=== PATIENT | male | born 1940 | race Caucasian/White ===

== ENCOUNTER 2018-02-12 14:52 | Outpatient (CLI) | payer MEDICARE, OTHER, SELFPAY ==
--- NOTE | 2018-02-12 14:04 | DI.RAD_ITS ---
SYMPTOM/DIAGNOSIS: WHEEZING, R06.2, ? PNEUMONIA, COUGH, R05, R09.89, SYMPTOMS AND SIGNS OF RESP SYSTEMS PA AND LATERAL CHEST: Comparison is made with 11/05/09. Heart size and pulmonary vasculature are within normal limits. The lungs are clear. No effusions or pneumothoraces are identified. The lungs do appear to be hyperinflated suggesting underlying COPD. Degenerative changes are present in the spine. IMPRESSION: No acute pulmonary process.
== END 2018-02-12 15:12 ==
PROVIDERS: PCP Internal Medicine; Visit Provider Nurse Practitioner Adult Health
DX: R06.2 Wheezing (principal); R05 Cough; R09.89 Other specified symptoms and signs involving the circulatory and respiratory systems; J44.9 Chronic obstructive pulmonary disease, unspecified
CPT/HCPCS: 71046

== ENCOUNTER 2020-09-11 02:53 | Outpatient (CLI) | payer MEDICARE, OTHER, SELFPAY ==
[2020-09-11 15:51] LABS: TSH (W/Ref FT4) 1.97 uIU/mL (0.36-3.74)
[2020-09-11 15:52] LABS: Anion Gap 5.6 mmol/L (3-11); BUN 18 mg/dL (7-18); CO2 31.4 mmol/L (21.0-32.0); Calcium 9.2 mg/dL (8.5-10.1); Calculated LDL 83 mg/dL (<100); Chloride 107 mmol/L (98-107); Cholesterol 149 mg/dL (<200); Glucose 94 mg/dL (74-106); HDL Cholesterol 52 mg/dL (40-60); Potassium 4.5 mmol/L (3.5-5.1); Sodium 144 mmol/L (136-145); TSH 1.88 uIU/mL (0.36-3.74); Triglyceride 72 mg/dL (<150)
== END 2020-09-11 02:54 | disposition home or self-care (01) ==
LOC: LBO 02:53
PROVIDERS: PCP Internal Medicine; Visit Provider Internal Medicine
DX: E78.00 Pure hypercholesterolemia, unspecified (principal); E03.9 Hypothyroidism, unspecified; I10 Essential (primary) hypertension
CPT/HCPCS: 36415; 80048; 80061; 84443

== ENCOUNTER 2020-10-22 02:44 | Outpatient (CLI) | payer MEDICARE, OTHER, SELFPAY ==
[2020-10-22 17:09] LABS: TSH (W/Ref FT4) 0.67 uIU/mL (0.36-3.74)
== END 2020-10-22 02:45 | disposition home or self-care (01) ==
PROVIDERS: PCP Internal Medicine; Visit Provider Internal Medicine
DX: E03.9 Hypothyroidism, unspecified (principal)
CPT/HCPCS: 36415; 84443

== ENCOUNTER 2020-10-28 18:17 | Outpatient (REF) | payer MEDICARE, OTHER, SELFPAY | END 2020-10-28 18:18 | disposition home or self-care (01) | LOC: LBN 18:17 | PROVIDERS: PCP Internal Medicine; Visit Provider Internal Medicine | DX: E03.9 Hypothyroidism, unspecified (principal) | CPT/HCPCS: 84439 ==

== ENCOUNTER 2020-12-15 12:26 | Outpatient (CLI) | payer MEDICARE, OTHER, SELFPAY ==
--- NOTE | 2020-12-15 12:15 | RT.EKG_ITS ---
APPROVED REPORT Exam: Resting ECG Reason for Exam: fatigue Patient Location: O HR:57 bpm ECG Measurements Heart Rate 57 AXIS NM 142 P 55 QRSd 135 QRS 50 QT 457 T 33 QTc 444 Conclusion Sinus bradycardia...rate< 60 Right bundle branch block...QRSd>120, terminal axis(90,270)
== END 2020-12-15 12:27 | disposition home or self-care (01) ==
LOC: DI.KIM 12:28
PROVIDERS: PCP Internal Medicine; Visit Provider Internal Medicine
DX: R53.83 Other fatigue (principal); I45.10 Unspecified right bundle-branch block
CPT/HCPCS: 93010

== ENCOUNTER 2020-12-22 01:52 | Outpatient (CLI) | payer MEDICARE, OTHER, SELFPAY ==
--- NOTE | 2020-12-22 06:45 | DI.US_ITS ---
APPROVED REPORT EXAM: Comprehensive 2D, Doppler, and color-flow Echocardiogram Patient Location: Out-Patient Health Education Teacher: Tami Lamar RDCS (AE) Indications: Dyspnea on exertion, Arteriosclerotic Cardiovascular disease Other Information Study Quality: Fair. Technically limited study due to body habitus. Conclusion Left Ventricle : The left ventricular systolic function is normal. The left ventricular ejection frac tion is within the normal range. There is normal left ventricular wall thickness. There is normal LV segmental wall motion. The left ventricular diastolic function is normal. LVEF is 58%. Right Ventricle : The right ventricle is normal size. The right ventricular systolic function is norm al. Atria : The left atrium size is normal. The right atrium size is normal. Mitral Valve : Mild mitral annular calcification. Mild mitral regurgitation. No evidence of mitral va lve stenosis. 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 The aortic root is normal in size. I VC is normal in size and collapses >50% with inspiration. See remainder of study for further details. Wall motion Left Ventricle The left ventricle is normal size. The left ventricular systolic function is normal. The left ventric ular ejection fraction is within the normal range. There is normal left ventricular wall thickness. T here is normal LV segmental wall motion. The left ventricular diastolic function is normal. There is no ventricular septal defect visualized. LVEF is 58%. Right Ventricle The right ventricle is normal size. The right ventricular systolic function is normal. Atria The left atrium size is normal. The right atrium size is normal. The interatrial septum is intact wit h no evidence for an atrial septal defect. Aortic Valve The Aortic valve is sclerotic. Number of aortic valve leaflets could not be assessed. There is no aor tic valvular stenosis. No aortic regurgitation is present. Mitral Valve Mild mitral annular calcification. No evidence of mitral valve stenosis. Mild mitral regurgitation. Tricuspid Valve The tricuspid valve is normal in structure. There is no tricuspid valve stenosis. Trace tricuspid reg urgitation. Unable to assess PA pressure. Pulmonic Valve Pulmonic valve is not well visualized. There is no pulmonic valvular stenosis. There is no pulmonic v alvular regurgitation. Great Vessels The aortic root is normal in size. The ascending aorta is moderately dilated (4cm). IVC is normal in size and collapses >50% with inspiration. Pericardium There is no pericardial effusion. 2D Dimensions IVSD d PLAX 0.89 cm M: 0.6-1.2 LV Vol A2C d MOD 85.7 mL LVPW d PLAX 0.86 cm M: 0.6 - 1.2 LV Vol A4C d MOD 76.7 mL LVID d PLAX 4.41 cm M: 4.2 - 5.8 LA vol/ BSA A2C s A-L 20.0 mL/m2 LVDs 3.10 cm M: 2.5 - 4.0 LA vol/ BSA A4C s A-L 24.2 mL/m2 Ao Root d 3.55 cm M: 3.1 - 3.7 LA Vol/ BSA Biplane s A-L 22.5 mL/m2 RA Area A4C 12.19 cm2 LA Area A4C s MOD 17.01 cm2 RA Vol/ BSA A4C s A-L 15.5 mL/m2 LA Area A2C s MOD 15.11 cm2 Ao Asc Diam d 3.99 cm M: 2.6 - 3.4 LV EF A4C MOD 58.0 % LV EF Teichholz 56.1 % LV EF A2C MOD 57.8 % LVEF (Mcgee's) 58.99 % M: 52 - 72 LV EF Biplane MOD 59.0 % LV Volume 62.38 mL M: 62 - 150 SV 49.08 mL LV Volume Index 31.19 mL/m2 M: 34 - 74 SV Index 24.52 mL/m2 LV Vol Biplane MOD 83.2 mL FS 29.10 % M-Mode TAPSE 1.64 cm (M/F) >1.7 LV Diastology MV E' medial 0.064 (>0.07 m/s) E/A Ratio 0.8 LV E/e MED 9.50 (<14) MV E Vmax 0.61 (0.4-1.3 m/s) MV E' lateral 0.068 (>0.1 m/s) MV A Vmax 0.80 (0.4-1.3 m/s) LV E/e LAT 8.80 (<14) MV E/A Ratio 0.74 MV E/E' medial 9.52 MV E/E' lateral 8.84 Aortic Valve LVOT Area 2.99 cm2 AoV Area Vmax 2.27 cm2 LVOT Vmax 1.02 m/s AoV Area/ BSA (Vmax) 1.13 cm2/m2 LVOT Mean Renny. 0.66 m/s CHERYL Mean Renny. 2.14 cm2 LVOT Peak Grad 4.1 mmHg CHERYL Mean Renny. Index 1.07 cm2/m2 LVOT Mean Grad 2.0 mmHg LVOT VTI 0.195 m LVOT Diam s 1.90 cm AoV Vmax 1.33 m/s Velocity Ratio 0.76 AoV Mean Renny. 0.92 m/s AoV Peak Grad 7.1 mmHg LVOT SV 58.16 mL AoV Mean Grad 3.8 mmHg AoV VTI 0.216 m AoV Area VTI 2.69 cm2 AoV Area/ BSA (VTI) 1.34 cm/m2 Mitral Valve MV DT 330 (160-240 msec) MV PHT 96 msec MV Area PHT 2.30 cm2 MV VTI 0.230 m MV Area VTI 2.53 (4.0-6.0 cm2) Pulmonary Valve PV Vmax 0.87 (0.5-1.5 m/s) RVOT Peak Gr. 1.90 mmHg PV Peak Grad 3.1 mmHg RVOT Mean Gr. 0.95 mmHg PV Mean Grad 1.9 mmHg RVOT VTI 0.129 m PV VTI 0.139 m RVOT Vmax 0.69 m/s
--- NOTE | 2020-12-22 08:30 | ETT_ITS ---
APPROVED REPORT Exam: Exercise Treadmill Patient Location: Out-Patient Room/Bed: Ordering Provider:CLAUDETTE OCHOA, Contact Number: [phone] BMI: 25.39 Baseline Rhythm: Sinus Rhythm w/ RBBB Indications: Dyspnea on exertion, h/o arterosclerotic cardiovascular disease Medical History Medical History: GERD, ASCVD, upper airway resistance syndrome, obstructive lung disease, HLD, depres alexandra, NSTEMI Cardiac Medications: Atorvastatin, ASA Allergies: Vaughan, sulfa, sulfamethoxazole Cardiac Risk Factors: CVD, smoker (former), HLD, family hx Previous Cardiac Procedures: Stent (2017) Pretest Chest Pain Characteristics: None Exercise History: Sedentary Physical Disabilities: None Lung Sounds: Clear to auscultation Heart Sounds: Regular Stress Test Details Test: Exercise stress testing was performed using a Braden protocol. Rest Stress HR Resting HR Supine: 70 bpm Max Heart Rate (APMHR): 142 bpm Resting HR Standin bpm Target HR (85% APMHR): 120 bpm Max HR Achieved: 122 bpm % of APMHR: 85 Recovery HR: 85 bpm HR response to stress: Normal HR response to stress Comment: (Metoprolol d/c 1 wk ago) BP Resting BP Supine: 132/78 mmHg Resting BP Standin/80 mmHg Max BP: 178/88 mmHg Recovery BP: 138/84 mmHg BP response to stress: Normal blood pressure response to stress. ECG Resting ECG: Sinus Rhythm, RBBB Ectopy: None Stress ECG: Sinus Tachycardia, RBBB ST Change: No significant ST segment changes noted Arrhythmia: Occasional multifocal PVCs Recovery ECG: Sinus Rhythm, RBBB Recovery ST Change: No significant ST segment changes noted Recovery Arrhythmia: Frequent multifocal PVCs Clinical Reason for Termination: Fatigue Stress Symptoms: General Fatigue, Dyspnea Exercise duration: 5 min08 sec Highest Stage Reached: Stage 2: 2.5 mph at 12% grade. Exercise capacity: 7.05 METs Estrada Treadmill Score: 5 Rate Pressure Product: [id number] Stress ECG Conclusion 1. The patient exercised for 5 minutes (7 METS). Exercise was stopped due to fatigue. 2. The patient's blood pressure and heart rate augmented appropriately. 3. The patient no symptoms suggestive of ischemia. 4. There is no evidence of ischemia on the ECG portion of the exam. Estrada Treadmill Score is 5 which is Low risk. Stress Test Summary STAGE Time (mins) Speed (mph) Grade (%) HR BP SYMPTOMS METS Supine 70 132/78 Standing 63 124/80 SpO2 95% 1 3 1.7 10 110 140/76 SpO2 94% 4.6 2 6 2.5 12 122 SpO2 94%, mild SOB 7 1 min recovery 104 170/70 SpO2 94%, mild dizziness 3 min recovery 86 178/88 symptoms resolved 6 min recovery 85 138/84
== END 2020-12-22 02:12 ==
PROVIDERS: PCP Internal Medicine; Visit Provider Internal Medicine
DX: R06.09 Other forms of dyspnea (principal); F32.9 Major depressive disorder, single episode, unspecified; R53.83 Other fatigue; Z86.79 Personal history of other diseases of the circulatory system; R06.02 Shortness of breath; I77.810 Thoracic aortic ectasia
CPT/HCPCS: 93016; 93018; 93306; 93017

== ENCOUNTER 2021-01-20 15:49 | Outpatient (CLI) | payer MEDICARE, OTHER, SELFPAY ==
--- NOTE | 2021-01-20 15:00 | DI.RAD_ITS ---
Exam(s) XR CHEST 2V PA LATERAL EXAM: XR CHEST 2V PA LATERAL CLINICAL HISTORY: abnormal lung exam, obstructive lung disease, J44.9. TECHNIQUE: 2D digital imaging was performed. COMPARISON: CR XR CHEST 2V PA LATERAL from 02/12/2018 FINDINGS: Heart size is normal. The mediastinum is not widened. Lungs are clear. No infiltrates nor pleural effusions. No pulmonary edema. Healed left-sided rib fracture noted. No pneumothorax. IMPRESSION: No acute pulmonary findings. DATA REPOSITORY: RADIATION DOSE DELIVERED:
== END 2021-01-20 16:09 ==
PROVIDERS: PCP Internal Medicine; Visit Provider Internal Medicine
DX: J44.9 Chronic obstructive pulmonary disease, unspecified (principal)
CPT/HCPCS: 71046

== ENCOUNTER 2021-01-22 02:00 | Outpatient (CLI) | payer MEDICARE, OTHER, SELFPAY ==
[2021-01-22 12:59] LABS: Source Nasal/Nares
[2021-01-22 16:58] LABS: COVID-19 PCR Negative (Negative)
== END 2021-01-22 02:01 | disposition home or self-care (01) ==
LOC: LBO 02:01
PROVIDERS: PCP Internal Medicine; Visit Provider Neurological Surgery
DX: Z01.812 Encounter for preprocedural laboratory examination (principal); Z20.822 Contact with and (suspected) exposure to COVID-19
CPT/HCPCS: 87635

== ENCOUNTER 2021-01-25 11:54 | Day surgery (SDC) | payer MEDICARE, OTHER, SELFPAY ==
[2021-01-25 12:13] VITALS: BP 121/76; PULSE 65; RESP 16; TEMP 36.2; O2SAT 97
--- NOTE | 2021-01-25 12:13 | W.ANESPRE ---
General Info Height: 5 ft 9 in Weight: 78.925 kg Body Mass Index (BMI): 25.7 Surgical Procedure: Operation Date: 01/25/21 15:40 Proposed Procedures Side Surgeon p Cataract Extraction with IOL Implant Left Cullen Pacheco MD Meds Allergies and Home Medications Allergies Allergy/AdvReac Type Severity Reaction Status Date / Time strawberry Allergy Intermediate hives Verified 01/25/21 12:08 Sulfa (Sulfonamide Allergy Unknown Hives Verified 01/25/21 12:08 Antibiotics) sulfamethoxazole Allergy Unknown Hives Verified 01/25/21 12:08 Home Medication Medication Instructions Recorded diphenhydramine HCl [Benadryl 25 mg PO PRN 10/05/12 Allergy] aspirin 81 mg PO DAILY tab 07/06/16 levothyroxine 125 mcg tablet 125 mcg PO DAILY #90 tab-cap 08/03/20 atorvastatin 80 mg tablet 80 mg PO DAILY #90 tab-cap 08/17/20 inhalational spacing device #1 ea 09/23/20 albuterol sulfate 90 mcg/actuation 1 puff INHALATION QID PRN #1 inh 01/20/21 aerosol inhaler metoprolol succinate 50 mg 25 mg PO DAILY #90 tab 01/20/21 tablet,extended release 24 hr pantoprazole 20 mg tablet,delayed 20 mg PO DAILY #90 tab 01/20/21 release Current Visit Medications: Current Medications Generic Name Dose Route Start Last Admin Trade Name Freq PRN Reason Stop Dose Admin Acetaminophen 1,000 mg 01/25/21 06:00 Acetaminophen 500 Mg Tab PO Q4H PRN PRN Miscellaneous Medication 0 ml 01/25/21 06:00 Prednisolone 1%, Moxifloxacin 0.5%, Nepafenac 0.1% 5ml Btl OS DIRECTED [facility] Miscellaneous Medication 0 ml 01/25/21 06:00 Tropicam./Phenyleph. (1/2.5%) 5 Ml Btl OS DIRECTED [facility] Tetracaine HCl 0 ml 01/25/21 06:00 Tetracaine 0.5% 4 Ml Btl OS DIRECTED [facility] PFSH Active Problems Active Problems: Problem Status Onset Code Diverticulosis of colon without diverticulitis 06/05/13 K57.30 Dysosmia 12/01/14 R43.9 Esophageal reflux 12/09/13 K21.9 Hypothyroidism 10/24/12 E03.9 Insomnia 12/01/14 G47.00 Nocturnal hypoxemia 04/01/15 G47.34 Obstructive lung disease 07/30/14 J44.9 Other and unspecified hyperlipidemia 08/01/11 E78.5 Snoring 12/01/14 R06.83 Upper airway resistance syndrome G47.8 BPH w/o urinary obs/LUTS 12/09/13 N40.0 Vitamin D deficiency 12/09/13 E55.9 Glaucoma 12/09/13 H40.9 Elevated fasting blood sugar R73.01 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 Fatigue R53.83 Diplopia H53.2 Unspecified visual field defects H53.40 Weight loss, non-intentional R63.4 Medical History Medical History (Updated 01/25/21 @ 12:08 by Elliott Macdonald) Acute coronary syndrome (06/20/16) [facility] troponin+, sent to [facility] [place] Basal cell carcinoma of skin (05/29/99) BPH (benign prostatic hyperplasia) Cataract, left eye Depressive disorder, not elsewhere classified (08/01/11) GERD (gastroesophageal reflux disease) Non-ST elevation (NSTEMI) myocardial infarction (06/21/16) Polymyalgia rheumatica (05/29/01) Steroids x 18 mo, no recurrence 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 Coronary Stent (06/22/16) [facility] [place]. Dr. Braden BelloCardiac Cath left- Stent of RCA lesion, 2 vessel CAD-LAD and RCA, coronary angiography, angioplasty LAD lesion Rotator Cuff Repair (04/08/15) left Tobacco Smoking/Tobacco Use Status: Former Tobacco Use Alcohol Alcohol Intake: current Alcohol intake frequency: a few times a month Alcohol type: beer and wine Substance Use Substance use: Never Substance use type: does not use Vital Signs and Lab Results Vital Signs Most Recent Vital Signs in EMR: Temp Pulse Resp BP Pulse Ox 36.2 C L 65 16 121/76 97 01/25/21 12:13 01/25/21 12:13 01/25/21 12:13 01/25/21 12:13 01/25/21 12:13 Lab Results Blood Type / Crossmatch: No Data to Display Complete Blood Count: No Data to Display Complete Metabolic Panel: No Data to Display Liver Function Panel: No Data to Display Coagulation Panel: No Data to Display Cardiac Panel: No Data to Display Arterial Blood Gas: No Data to Display Venous Blood Gas: No Data to Display Pancreas Panel: No Data to Display Thyroid Panel: No Data to Display Infectious Disease: Coronavirus (COVID-19)(PCR) Negative (Negative) 01/22/21 10:40 01/22/21 Coronavirus 2019 Source Nasal/Nares 01/22/21 10:40 01/22/21 Blood Cultures: No Data to Display Toxicology Panel: No Data to Display Imaging and Studies Imaging and Studies EKG Summary: Conclusion Sinus bradycardia...rate< 60 Right bundle branch block...QRSd>120, terminal axis(90,270) 12/15/20 Echocardiogram Summary: Conclusion Left Ventricle : The left ventricular systolic function is normal. The left ventricular ejection fraction is within the normal range. There is normal left ventricular wall thickness. There is normal LV segmental wall motion. The left ventricular diastolic function is normal. LVEF is 58%. Right Ventricle : The right ventricle is normal size. The right ventricular systolic function is normal. Atria : The left atrium size is normal. The right atrium size is normal. Mitral Valve : Mild mitral annular calcification. Mild mitral regurgitation. No evidence of mitral valve stenosis. 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 The aortic root is normal in size. IVC is normal in size and collapses >50% with inspiration. See remainder of study for further details. Wall motion Left Ventricle The left ventricle is normal size. The left ventricular systolic function is normal. The left ventricular ejection fraction is within the normal range. There is normal left ventricular wall thickness. There is normal LV segmental wall motion. The left ventricular diastolic function is normal. There is no ventricular septal defect visualized. LVEF is 58%. Right Ventricle The right ventricle is normal size. The right ventricular systolic function is normal. Atria The left atrium size is normal. The right atrium size is normal. The interatrial septum is intact with no evidence for an atrial septal defect. Aortic Valve The Aortic valve is sclerotic. Number of aortic valve leaflets could not be assessed. There is no aortic valvular stenosis. No aortic regurgitation is present. Mitral Valve Mild mitral annular calcification. No evidence of mitral valve stenosis. Mild mitral regurgitation. Tricuspid Valve The tricuspid valve is normal in structure. There is no tricuspid valve stenosis. Trace tricuspid regurgitation. Unable to assess PA pressure. Pulmonic Valve Pulmonic valve is not well visualized. There is no pulmonic valvular stenosis. There is no pulmonic valvular regurgitation. Great Vessels The aortic root is normal in size. The ascending aorta is moderately dilated (4cm). IVC is normal in size and collapses >50% with inspiration. Pericardium There is no pericardial effusion. 12/22/20 Anesthesia Assessment and Plan Anesthesia History Personal History: No History of Anesthesia Complications Family History: No Family History of Anesthesia Complications Exercise Tolerance Exercise Tolerance: Metabolic Equivalents<4 Cardiac & Pulmonary Exam Cardiac Exam: Normal S1/S2 Heart Sounds Pulmonary Exam: Clear Bilateral Breath Sounds Cardiac and Pulmonary Comment:: NSTEMI 2017 Coronary Stent (06/22/16) [facility] [place] RCA lesion, 2 vessel CAD-LAD and RCA, coronary angiography, angioplasty LAD lesion Airway Exam Known Difficult Airway: No Mouth Opening: Normal (> 3cm) Thyromental Distance: Greater than 3 cm Neck Range of Motion: Full ROM Neck Circumference: Normal ASA Classification ASA Score: ASA 3 Emergency Case?: No NPO Status NPO Status: NPO Clears >2 hours, Solids >8 hours Anesthesia Plan Resuscitation Status: Full Code Anesthesia Technique: MAC Anesthesia Airway Planned: Natural Airway Monitors Used: Standard Monitors
[2021-01-25] MEDS: Tropicam./Phenyleph. (1/2.5%) 5 ML BTL OS ×3 (12:33→12:46)
--- NOTE | 2021-01-25 12:34 | ANES.PREOP_ITS ---
General Info Date of Service Date Performed: 01/25/21 Height: 5 ft 9 in Weight: 78.5 kg Body Mass Index (BMI): 25.5 Surgical Procedure: Operation Date: 01/25/21 15:40 Proposed Procedures Side Surgeon p Cataract Extraction with IOL Implant Left Cullen Pacheco MD Meds Allergies and Home Medications Allergies Allergy/AdvReac Type Severity Reaction Status Date / Time strawberry Allergy Intermediate hives Verified 01/25/21 12:08 Sulfa (Sulfonamide Allergy Unknown Hives Verified 01/25/21 12:08 Antibiotics) sulfamethoxazole Allergy Unknown Hives Verified 01/25/21 12:08 Home Medication Medication Instructions Recorded diphenhydramine HCl [Benadryl 25 mg PO PRN 10/05/12 Allergy] aspirin 81 mg PO DAILY tab 07/06/16 levothyroxine 125 mcg tablet 125 mcg PO DAILY #90 tab-cap 08/03/20 atorvastatin 80 mg tablet 80 mg PO DAILY #90 tab-cap 08/17/20 inhalational spacing device #1 ea 09/23/20 albuterol sulfate 90 mcg/actuation 1 puff INHALATION QID PRN #1 inh 01/20/21 aerosol inhaler metoprolol succinate 50 mg 25 mg PO DAILY #90 tab 01/20/21 tablet,extended release 24 hr pantoprazole 20 mg tablet,delayed 20 mg PO DAILY #90 tab 01/20/21 release Current Visit Medications: Current Medications Generic Name Dose Route Start Last Admin Trade Name Freq PRN Reason Stop Dose Admin Acetaminophen 1,000 mg 01/25/21 06:00 Acetaminophen 500 Mg Tab PO Q4H PRN PRN Miscellaneous Medication 0 ml 01/25/21 06:00 Prednisolone 1%, Moxifloxacin 0.5%, Nepafenac 0.1% 5ml Btl OS DIRECTED BELEN Miscellaneous Medication 0 ml 01/25/21 06:00 01/25/21 12:33 Tropicam./Phenyleph. (1/2.5%) 5 Ml Btl OS 1 drp DIRECTED BELEN Administration Tetracaine HCl 0 ml 01/25/21 06:00 Tetracaine 0.5% 4 Ml Btl OS DIRECTED BELEN PFSH Active Problems Active Problems: Problem Status Onset Code Diverticulosis of colon without diverticulitis 06/05/13 K57.30 Dysosmia 12/01/14 R43.9 Esophageal reflux 12/09/13 K21.9 Hypothyroidism 10/24/12 E03.9 Insomnia 12/01/14 G47.00 Nocturnal hypoxemia 04/01/15 G47.34 Obstructive lung disease 07/30/14 J44.9 Other and unspecified hyperlipidemia 08/01/11 E78.5 Snoring 12/01/14 R06.83 Upper airway resistance syndrome G47.8 BPH w/o urinary obs/LUTS 12/09/13 N40.0 Vitamin D deficiency 12/09/13 E55.9 Glaucoma 12/09/13 H40.9 Elevated fasting blood sugar R73.01 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 Fatigue R53.83 Diplopia H53.2 Unspecified visual field defects H53.40 Weight loss, non-intentional R63.4 Medical History Medical History (Updated 01/25/21 @ 12:08 by Elliott Macdonald) Acute coronary syndrome (06/20/16) [facility] troponin[place] [facility] Basal cell carcinoma of skin (05/29/99) BPH (benign prostatic hyperplasia) Cataract, left eye Depressive disorder, not elsewhere classified (08/01/11) GERD (gastroesophageal reflux disease) Non-ST elevation (NSTEMI) myocardial infarction (06/21/16) Polymyalgia rheumatica (05/29/01) Steroids x 18 mo, no recurrence 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 Coronary Stent (06/22/16[place] [facility]. Braden BelloCardiac Cath left- Stent of RCA lesion, 2 vessel CAD- LAD and RCA, coronary angiography, angioplasty LAD lesion Rotator Cuff Repair (04/08/15) left Tobacco Smoking/Tobacco Use Status: Former Tobacco Use Alcohol Alcohol Intake: current Alcohol intake frequency: a few times a month Alcohol type: beer and wine Substance Use Substance use: Never Substance use type: does not use Vital Signs and Lab Results Vital Signs Most Recent Vital Signs in EMR: Most Recent Vital Signs Temp Pulse Resp BP Pulse Ox 36.2 C L 65 16 121/76 97 01/25/21 12:13 01/25/21 12:13 01/25/21 12:13 01/25/21 12:13 01/25/21 12:13 Lab Results Blood Type / Crossmatch: No Data to Display Complete Blood Count: No Data to Display Complete Metabolic Panel: No Data to Display Liver Function Panel: No Data to Display Coagulation Panel: No Data to Display Cardiac Panel: No Data to Display Arterial Blood Gas: No Data to Display Venous Blood Gas: No Data to Display Pancreas Panel: No Data to Display Thyroid Panel: No Data to Display Infectious Disease: Coronavirus (COVID-19)(PCR) Negative (Negative) 01/22/21 10:40 01/22/21 Coronavirus 2019 Source Nasal/Nares 01/22/21 10:40 01/22/21 Blood Cultures: No Data to Display Toxicology Panel: No Data to Display Imaging and Studies Imaging and Studies EKG Summary: Conclusion Sinus bradycardia...rate< 60 Right bundle branch block...QRSd>120, terminal axis(90,270) 12/15/20 Echocardiogram Summary: Conclusion Left Ventricle : The left ventricular systolic function is normal. The left ventricular ejection fraction is within the normal range. There is normal left ventricular wall thickness. There is normal LV segmental wall motion. The left ventricular diastolic function is normal. LVEF is 58%. Right Ventricle : The right ventricle is normal size. The right ventricular systolic function is normal. Atria : The left atrium size is normal. The right atrium size is normal. Mitral Valve : Mild mitral annular calcification. Mild mitral regurgitation. No evidence of mitral valve stenosis. 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 The aortic root is normal in size. IVC is normal in size and collapses >50% with inspiration. See remainder of study for further details. Wall motion Left Ventricle The left ventricle is normal size. The left ventricular systolic function is no rmal. The left ventricular ejection fraction is within the normal range. There is normal left ventricular wall thickness. There is normal LV segmental wall motion. The left ventricular diastolic function is normal. There is no ventricular septal defect visualized. LVEF is 58%. Right Ventricle The right ventricle is normal size. The right ventricular systolic function is normal. Atria The left atrium size is normal. The right atrium size is normal. The interatrial septum is intact with no evidence for an atrial septal defect. Aortic Valve The Aortic valve is sclerotic. Number of aortic valve leaflets could not be assessed. There is no aortic valvular stenosis. No aortic regurgitation is present. Mitral Valve Mild mitral annular calcification. No evidence of mitral valve stenosis. Mild mitral regurgitation. Tricuspid Valve The tricuspid valve is normal in structure. There is no tricuspid valve stenosis. Trace tricuspid regurgitation. Unable to assess PA pressure. Pulmonic Valve Pulmonic valve is not well visualized. There is no pulmonic valvular stenosis. There is no pulmonic valvular regurgitation. Great Vessels The aortic root is normal in size. The ascending aorta is moderately dilated (4cm). IVC is normal in size and collapses >50% with inspiration. Pericardium There is no pericardial effusion. 12/22/20 Anesthesia Assessment and Plan Anesthesia History Personal History: No History of Anesthesia Complications Family History: No Family History of Anesthesia Complications Exercise Tolerance Exercise Tolerance: Metabolic Equivalents>4 Pertinent Negatives Pertinent Negatives: No Major Cardiovascular Symptoms or Complaints Cardiac & Pulmonary Exam Cardiac Exam: Normal S1/S2 Heart Sounds Pulmonary Exam: Clear Bilateral Breath Sounds Cardiac and Pulmonary Comment:: NSTEMI 2017 with stenting, no cardiac symptoms since Airway Exam Known Difficult Airway: No Mallampati Class: 1 Mouth Opening: Normal (> 3cm) Thyromental Distance: Greater than 3 cm Facial Hair: Full [place] Neck Range of Motion: Full ROM Neck Circumference: Normal Teeth Condition: Normal Dentition ASA Classification ASA Score: ASA 2 Emergency Case?: No NPO Status NPO Status: NPO Clears >2 hours, Solids >8 hours Anesthesia Plan Resuscitation Status: Full Code Anesthesia Technique: MAC Anesthesia Airway Planned: Natural Airway Monitors Used: Standard Monitors
[2021-01-25 12:40] VITALS: BMI 25.5
[2021-01-25] MEDS: Tetracaine 0.5% 4 ML BTL OS (13:24)
[2021-01-25] MEDS: Duovisc Viscoelastic System EACH 1 EACH (13:25)
[2021-01-25] MEDS: Balanced Salt Soln.-PLUS 500 ML BAG (13:25)
[2021-01-25] MEDS: Lidocaine 1% Pres-Free 5 ML VIAL (13:26)
[2021-01-25] MEDS: Lidocaine 2% Jelly 6 ML SYR (13:26)
[2021-01-25] MEDS: Povidone-Iodine Ophth 30 ML BTL (13:28)
--- NOTE | 2021-01-25 13:53 | W.PM.DSUDISC ---
Discharge Plan Disposition Patient Disposition: HOME Condition: Good Discharge Details Attending Provider: Cullen Pacheco Primary Care Provider: Marilu Montgomery Home Meds and New Rx's Prescriptions: No Action (DME) BreatheRite MDI Spacer Spacer See Rx Instructions .ROUTE .MEDSUPPLY Qty: 1 RF: 0 metoprolol succinate 50 mg tablet extended release 24 hr 25 mg PO DAILY Qty: 90 RF: 3 pantoprazole [Protonix] 20 mg tablet,delayed release (DR/EC) 20 mg PO DAILY Qty: 90 RF: 0 albuterol sulfate 90 mcg/actuation HFA aerosol inhaler 1 puff inhalation QID PRN (Reason: shortness of breath or wheezing) Qty: 1 RF: 2 diphenhydramine HCl [Benadryl Allergy] 25 MG tablet 25 mg PO PRN RF: 0 aspirin 81 MG tablet,delayed release (DR/EC) 81 mg PO DAILY RF: 0 levothyroxine 125 mcg tablet 125 mcg PO DAILY Qty: 90 RF: 3 atorvastatin 80 mg tablet 80 mg PO DAILY Qty: 90 RF: 3 Discharge Instructions Stand Alone Forms: Post-op Topical Cataract, Cally Larson (DSU) Discharge Orders Discharge Orders: Discharge Order (Routine); Ordered 01/25/21 Ordered By: Cullen Pacheco DS: Diagnosis Discharge Diagnosis (1) Cortical cataract of left eye: Status: Resolved (2) Nuclear sclerotic cataract of left eye: Status: Resolved
[2021-01-25 13:54] VITALS: BP 132/70; PULSE 64; RESP 16; TEMP 36.1; O2SAT 100
--- NOTE | 2021-01-25 13:56 | W.PM.OP ---
Date of service: 01/25/21 Time of Service: 13:56 Operative Note Operative Note DATE OF PROCEDURE: 01/25/21 PRE-OP DIAGNOSIS: Nuclear/cortical cataract, left eye POST-OP DIAGNOSIS: same PROCEDURE: Cataract extraction using phacoemulsification with intraocular lens implant, left eye SURGEON: Cullen Pacheco ANESTHESIA TYPE: Local By Surgeon and MAC Refer to Anesthesia Record PATHOLOGY: none sent COMPLICATIONS: None Patient was transported to: same day Patient's condition: stable Implants: [employer] / [employer] Tecnis [id number] Indications: Progressive decreased vision due to cataract, left eye, with poor red reflex Procedure Description: CATARACT SURGERY OPERATIVE REPORT PREOPERATIVE DIAGNOSIS: 1. Nuclear/cortical cataract, left eye POSTOPERATIVE DIAGNOSIS: Same OPERATION: 1. Cataract extraction using phacoemulsification with posterior chamber intraocular lens implant, left eye. IOL: IOL General Hardware Salesperson/Model: [employer] / RASHID Tecnis [id number] IOL Power: + 20.50 diopters IOL Serial Number: [id number] Optic Diameter: 6.0 mm Haptic/Overall Diameter: 13.0 mm PHACO INFO: [employer] K.K.urion Vision System with OZil and [employer]uid[employer] Cumulative Dispersed Energy (CDE): 15.9 seconds SURGEON: Cullen Pacheco MD, [place] ANESTHESIA: Monitored A [facility] (MAC), with local sub-tenon's anesthetic infiltration COMPLICATIONS: None SPECIMENS: None INDICATIONS FOR PROCEDURE: The patient is a 80-year-old gentleman with history of myopia, having undergone cataract surgery many years ago in the right eye with a postop refractive target of -5.0 diopters. He has now developed asymptomatic nuclear/cortical cataract in the left eye and desires cataract surgery there and attempt to improve and maximize his vision. Postoperative refractive target is -5.0 diopters. PROCEDURE: The correct surgical eye was identified and marked as the left eye and the pupil was dilated in the preoperative area using mydriatics and cycloplegics. The dilated pupil size was 7.5 mm. He elected to proceed without oral sedation.. The patient was brought to the operating room where cardiopulmonary monitoring was instituted and surgical time-out was performed, confirming the correct operative eye and IOL power. Topical anesthesia was administered and ophthalmic povidone-iodine 5% was instilled into the conjunctival fornices. Lidocaine gel was applied to the cornea and the jake-ocular area was prepped with Betadine 10% solution and draped in the usual sterile fashion for intraocular surgery, including an aperture drape. A Tegaderm transparent film dressing was cut in half and used to cover the lashes and lid margins. Care was taken to sequester the lashes and lid margins under the Tegaderm dressing. A lid speculum was placed between the lids of the operative eye and the Alberto-Niraj operating microscope was maneuvered into position. Kendy scissors were then used to make a conjunctival buttonhole approximately 6mm posterior to the limbus in the inferonasal quadrant. Blunt dissection was carried out to expose bare sclera, and a blunt-tipped sub-tenon?s anesthesia cannula was introduced and passed posteriorly along the globe where non-preserved plain lidocaine was injected into posterior sub-Tenon?s space. A sideport knife was used to make a paracentesis port superiorly/superiortemporally. Intraocular phenylephrine/lidocaine was injected int the anterior chamber.. The anterior chamber was filled with viscoelastic. A 2.4mm keratome knife was used to create a half-thickness groove at the limbus and then to construct a three-plane near-clear corneal tunnel extending 2.0mm into clear cornea at the 3:00 position. A flap was raised on the anterior capsule and capsulorhexis forceps were used to complete a continuous curvilinear capsulorhexis of 5.5 mm. Balanced salt solution was then used to perform cortical cleaving hydrodissection and nuclear hydrodelineation until the lens could be freely rotated within the capsular bag. The lens nucleus was then disassembled and removed within the capsular bag and iris plane using phacoemulsification. Residual cortical material was removed using the 45-degree angled silicone I/A tip with 0.3mm port. The posterior capsule was carefully polished to remove as much residual lens epithelial cells as safely possible. The capsular bag was then inflated and the anterior chamber deepened with viscoelastic. The lens implant described above was inserted into the capsular bag using the RASHID Valmy Injector. A Kuglen hook was used to dial the IOL into position. Residual viscoelastic was then removed first from posterior to the IOL, then from the anterior chamber using the I/A handpiece. The lens implant was noted to center nicely within the capsular bag. The incisions were stromally hydrated, and the anterior chamber was reformed using BSS. Then 0.5cc of moxifloxacin 1.0mg/ml were injected into the capsular bag and anterior chamber. The incisions were checked with a Weck spear and found to be secure. Several drops of ophthalmic povidone-iodine 5% were then applied to the eye followed by two drops of Imprimis combination prednisolone/moxifloxacin/nepafenac solution. The drapes were removed and a clear plastic protective eye shield was placed over the eye. The patient was then returned to Same Day Surgery in stable condition.
--- NOTE | 2021-01-25 14:05 | W.ANESPOSTOP ---
Postoperative Evaluation Date, Time and Location Date Performed: 01/25/21 Time Performed: 14:00 Patient Location: Day Surgery Unit Vital Signs Most Recent Imported Vital Signs: Most Recent Vital Signs Temp Pulse Resp BP Pulse Ox 36.1 C L 64 16 132/70 100 01/25/21 13:54 01/25/21 13:54 01/25/21 13:54 01/25/21 13:54 01/25/21 13:54 Pain Score Most Recent Pain Score: Most Recent Pain Score Pain Level 0 01/25/21 13:54 Assessment Mental Status: Awake (Alert & Oriented to Patient Baseline) Airway and Respiratory Function: Patent airway with normal (patient baseline) respiratory exam Cardiovascular Function: Hemodynamically Stable Hydration Status: Adequately Hydrated Nausea & Vomiting: No Nausea or Vomiting Pain: Pt. Denies Any Pain Peripheral Nerve Block: Patient did not receive a nerve block
== END 2021-01-25 14:08 | disposition home or self-care (01) ==
PROVIDERS: PCP Internal Medicine; Visit Provider Ophthalmology
PROC: (CPT 66984; principal; 2021-01-25 15:30)
DX: H25.12 Age-related nuclear cataract, left eye (principal); J44.9 Chronic obstructive pulmonary disease, unspecified
CPT/HCPCS: 66984; V2632

== ENCOUNTER 2021-04-08 02:54 | Outpatient (CLI) | payer MEDICARE, OTHER, SELFPAY ==
[2021-04-08] MEDS: Inhaler, Assist Device 1 EACH MC (11:04)
[2021-04-08] MEDS: Albuterol HFA 18 GM 200 PUFF INH IH (11:04)
--- NOTE | 2021-04-09 16:50 | W.PFT ---
Date of service: 04/09/21 Time of Service: 10:06 Pulmonary Function Test Result Requesting Provider Marilu Montgomery Indications: Dyspnea Interpretation Spirometry: There is no airflow limitation. There is a restrictive pattern to spirometry. There is a significant bronchodilator response. Appearance of flow volume loop and volume-time curve are consistent with an obstructive process. Lung Volumes: Lung volumes are normal with possible mild air trapping. Diffusion Capacity: Diffusion normal. Airway Pressure: Airways resistance is normal. Impression It is likely that the FVC is reduced due to airflow obstruction given the appearance of the flow volume loop and volume-time curve. There is a significant bronchodilator effect and a normal diffusion. This could represent chronic bronchitis (COPD) or asthma in the correct clinical setting. Clinical Correlation therefore is recommended.
== END 2021-04-08 02:55 | disposition home or self-care (01) ==
LOC: RT 02:54
PROVIDERS: PCP Internal Medicine; Visit Provider Internal Medicine
DX: R06.09 Other forms of dyspnea (principal); Z87.891 Personal history of nicotine dependence; J98.4 Other disorders of lung
CPT/HCPCS: 94060; 94726; 94729

== ENCOUNTER 2021-09-21 05:24 | Outpatient (CLI) | payer MEDICARE, OTHER, SELFPAY | END 2021-09-21 05:25 | disposition home or self-care (01) | LOC: LBO 05:25 | PROVIDERS: PCP Internal Medicine; Referring Provider Internal Medicine; Visit Provider Internal Medicine ==

== ENCOUNTER 2021-09-28 02:31 | Outpatient (CLI) | payer MEDICARE, OTHER, SELFPAY ==
[2021-09-28 16:40] LABS: BUN 11 mg/dL (7-18); CREATININE 0.9 mg/dL (0.70-1.30); Calcium 8.8 mg/dL (8.5-10.1); Chloride 104 mmol/L (98-107); Glucose 108 mg/dL (74-106); Sodium 142 mmol/L (136-145)
[2021-09-28 16:54] LABS: Calculated LDL 90 mg/dL (<100); Cholesterol 154 mg/dL (<200); HDL Cholesterol 55 mg/dL (40-60); TSH (W/Ref FT4) 1.76 uIU/mL (0.36-3.74); Triglyceride 49 mg/dL (<150)
== END 2021-09-28 02:32 | disposition home or self-care (01) ==
LOC: LBO 02:32
PROVIDERS: Student in an Organized Health Care Education/Training Program; PCP Internal Medicine; Visit Provider Internal Medicine
DX: E03.9 Hypothyroidism, unspecified (principal); E78.00 Pure hypercholesterolemia, unspecified; R73.01 Impaired fasting glucose; Z86.79 Personal history of other diseases of the circulatory system
CPT/HCPCS: 36415; 80048; 80061; 84443

== ENCOUNTER → 2022-01-17 13:35 | Outpatient (BNVA) | payer MEDICARE, OTHER, SELFPAY | PROVIDERS: PCP Internal Medicine; Referring Provider Internal Medicine; Visit Provider Psychiatry & Neurology Neurology | DX: R29.898 Other symptoms and signs involving the musculoskeletal system (principal); G62.9 Polyneuropathy, unspecified; R73.03 Prediabetes | CPT/HCPCS: 99214 ==

== ENCOUNTER 2022-02-17 15:03 | Outpatient (CLI) | payer MEDICARE, OTHER, SELFPAY ==
[2022-02-17 13:05] LABS: Abs Immature Grans 0.03 10^3/uL (0.0-0.06); Absolute Basophil Count 0.05 10^3/uL (0.0-0.2); Absolute Eosinophil Count 0.22 10^3/uL (0.0-0.7); Absolute Lymphocyte Count 1.67 10^3/uL (1.2-3.4); Absolute Monocyte Count 0.53 10^3/uL (0.1-0.8); Absolute Neutrophil Count 6.45 10^3/uL (1.2-6.7); Basophils % 0.6; Eosinophils % 2.5; HCT 42.8 % (40.0-50.0); HGB 14.3 g/dL (13.5-17.5); Immature Grans % 0.3; Lymphocytes % 18.7; MCHC 33.4 % (32.0-36.0); MCV 90 fL (80-95); MPV 8.8 fL (8.0-11.0); Monocytes % 5.9; Platelet Count 300 10^3/uL (130-400); RBC 4.76 10^6/uL (4.36-5.78); RDW 12.9 % (11.8-14.1); RDW-SD 42.8 fL; WBC 8.95 10^3/uL (4.4-10.8)
[2022-02-17 13:59] LABS: Vitamin B12 292 pg/mL (193-986)
[2022-02-17 14:21] LABS: Hemoglobin A1C 5.4 % (<5.7)
[2022-02-18 12:44] LABS: Albumin 62.2 % (55.8-66.1); Total Protein 6.4 g/dL (6.3-8.2)
== END 2022-02-17 15:04 | disposition home or self-care (01) ==
LOC: LBO 15:08
PROVIDERS: Psychiatry & Neurology Neurology; PCP Family Medicine; Visit Provider Family Medicine
DX: R73.9 Hyperglycemia, unspecified (principal); R26.89 Other abnormalities of gait and mobility; G62.9 Polyneuropathy, unspecified; R06.81 Apnea, not elsewhere classified
CPT/HCPCS: 36415; 82607; 83036; 84165; 85025

== ENCOUNTER → 2022-02-21 15:07 | Outpatient (BNVA) | payer MEDICARE, OTHER, SELFPAY | PROVIDERS: PCP Family Medicine; Referring Provider Family Medicine; Visit Provider Psychiatry & Neurology Neurology | DX: R20.0 Anesthesia of skin (principal); R53.1 Weakness; R06.09 Other forms of dyspnea; J44.9 Chronic obstructive pulmonary disease, unspecified; R26.89 Other abnormalities of gait and mobility; R42 Dizziness and giddiness; R29.898 Other symptoms and signs involving the musculoskeletal system; G62.9 Polyneuropathy, unspecified | CPT/HCPCS: 99215 ==

== ENCOUNTER 2022-04-01 02:56 | Outpatient (CLI) | payer MEDICARE, SELFPAY ==
[2022-04-01] MEDS: Albuterol HFA 18 GM 200 PUFF INH IH (14:15)
[2022-04-01] MEDS: Inhaler, Assist Device 1 EACH MC (14:16)
--- NOTE | 2022-04-04 14:54 | W.PFT ---
Date of service: 04/01/22 Time of Service: 13:16 Pulmonary Function Test Result Requesting Provider Duchene Indications: ACOS Interpretation Spirometry: There is severe airflow limitation. There is not a significant bronchodilator response. The FVC is low. Lung Volumes: There is air trapping Diffusion Capacity: Normal diffusion Airway Pressure: Normal airways resistance. Impression Severe airflow obstruction with air trapping and a normal diffusion. The low FVC is due to severe airflow obstruction. Note: When compared to 04/08/21, the FEV1 and FVC have both decreased. Clinical Correlation therefore is recommended.
== END 2022-04-01 02:57 | disposition home or self-care (01) ==
LOC: RT 02:56
PROVIDERS: PCP Family Medicine; Visit Provider Student in an Organized Health Care Education/Training Program
DX: J44.9 Chronic obstructive pulmonary disease, unspecified (principal); J98.8 Other specified respiratory disorders
CPT/HCPCS: 94060; 94726; 94729

== ENCOUNTER 2022-09-27 15:38 | Outpatient (REF) | payer MEDICARE, SELFPAY ==
[2022-09-27 16:02] LABS: Abs Immature Grans 0.02 10^3/uL (0.0-0.06); Absolute Basophil Count 0.06 10^3/uL (0.0-0.2); Absolute Eosinophil Count 0.16 10^3/uL (0.0-0.7); Absolute Lymphocyte Count 1.04 10^3/uL (1.2-3.4); Absolute Monocyte Count 0.65 10^3/uL (0.1-0.8); Absolute Neutrophil Count 5.52 10^3/uL (1.2-6.7); Basophils % 0.8; Eosinophils % 2.1; HCT 41.9 % (40.0-50.0); HGB 14.1 g/dL (13.5-17.5); Immature Grans % 0.3; MCH 30.9 pg (27.0-33.0); MCHC 33.7 % (32.0-36.0); MCV 92 fL (80-95); MPV 8.9 fL (8.0-11.0); Monocytes % 8.7; Neutrophils % 74.1; Platelet Count 322 10^3/uL (130-400); RBC 4.57 10^6/uL (4.36-5.78); RDW 12.8 % (11.8-14.1); RDW-SD 43.4 fL; WBC 7.45 10^3/uL (4.4-10.8)
[2022-09-27 16:06] LABS: Anion Gap 4.2 mmol/L (3-11); BUN 13 mg/dL (7-18); CO2 31.8 mmol/L (21.0-32.0); Calcium 9.3 mg/dL (8.5-10.1); Chloride 102 mmol/L (98-107); Estimated GFR 76.08 (mL/min/1.73m2); Glucose 73 mg/dL (74-106); Potassium 3.8 mmol/L (3.5-5.1); Sodium 138 mmol/L (136-145)
== END 2022-09-27 15:39 | disposition home or self-care (01) ==
LOC: LBN 15:38
PROVIDERS: PCP Family Medicine; Visit Provider Student in an Organized Health Care Education/Training Program
DX: I95.1 Orthostatic hypotension (principal); R09.02 Hypoxemia; J98.8 Other specified respiratory disorders; R53.83 Other fatigue; R63.4 Abnormal weight loss; E03.9 Hypothyroidism, unspecified; Z12.5 Encounter for screening for malignant neoplasm of prostate
CPT/HCPCS: 80048; 84153; 85025

== ENCOUNTER → 2023-02-08 11:15 | Outpatient (BNVA) | payer MEDICARE, SELFPAY | PROVIDERS: PCP Family Medicine; Referring Provider Family Medicine; Visit Provider Psychiatry & Neurology Neurology | DX: R42 Dizziness and giddiness (principal); G62.9 Polyneuropathy, unspecified; R26.89 Other abnormalities of gait and mobility; G70.00 Myasthenia gravis without (acute) exacerbation; R41.3 Other amnesia | CPT/HCPCS: 99215 ==

== ENCOUNTER → 2023-03-16 12:12 | Outpatient (BNVA) | payer MEDICARE, SELFPAY | PROVIDERS: PCP Family Medicine; Referring Provider Family Medicine; Visit Provider Psychiatry & Neurology Neurology | DX: G70.00 Myasthenia gravis without (acute) exacerbation (principal); R42 Dizziness and giddiness; R26.89 Other abnormalities of gait and mobility; G62.9 Polyneuropathy, unspecified; H53.2 Diplopia; R41.3 Other amnesia | CPT/HCPCS: 99214 ==

== ENCOUNTER → 2023-05-02 13:47 | Outpatient (BNVA) | payer MEDICARE, SELFPAY | PROVIDERS: PCP Family Medicine; Referring Provider Family Medicine; Visit Provider Student in an Organized Health Care Education/Training Program | DX: J44.9 Chronic obstructive pulmonary disease, unspecified (principal); Z79.51 Long term (current) use of inhaled steroids; Z87.891 Personal history of nicotine dependence; G70.00 Myasthenia gravis without (acute) exacerbation; G70.9 Myoneural disorder, unspecified; J99 Respiratory disorders in diseases classified elsewhere | CPT/HCPCS: 99214 ==

== ENCOUNTER → 2023-05-16 13:04 | Outpatient (BNVA) | payer MEDICARE, SELFPAY | PROVIDERS: PCP Family Medicine; Referring Provider Family Medicine; Visit Provider Psychiatry & Neurology Neurology | DX: R42 Dizziness and giddiness (principal); G62.9 Polyneuropathy, unspecified; R26.89 Other abnormalities of gait and mobility; G70.00 Myasthenia gravis without (acute) exacerbation; R41.3 Other amnesia | CPT/HCPCS: 99214 ==

== ENCOUNTER → 2023-06-14 14:35 | Outpatient (BNVA) | payer MEDICARE, SELFPAY | PROVIDERS: PCP Family Medicine; Referring Provider Family Medicine; Visit Provider Psychiatry & Neurology Neurology | DX: R42 Dizziness and giddiness (principal); G62.9 Polyneuropathy, unspecified; R26.89 Other abnormalities of gait and mobility; G70.00 Myasthenia gravis without (acute) exacerbation; R41.3 Other amnesia | CPT/HCPCS: 99214 ==

== ENCOUNTER → 2023-07-17 10:56 | Outpatient (BNVA) | payer MEDICARE, SELFPAY | PROVIDERS: PCP Family Medicine; Referring Provider Family Medicine; Visit Provider Podiatrist | DX: L60.3 Nail dystrophy; M79.674 Pain in right toe(s); M79.675 Pain in left toe(s); I73.89 Other specified peripheral vascular diseases; G70.00 Myasthenia gravis without (acute) exacerbation; G62.9 Polyneuropathy, unspecified; B35.1 Tinea unguium | CPT/HCPCS: 11721; 17110; 93922; 99213 ==

== ENCOUNTER → 2023-08-14 11:05 | Outpatient (BNVA) | payer MEDICARE, SELFPAY | PROVIDERS: PCP Family Medicine; Referring Provider Family Medicine; Visit Provider Psychiatry & Neurology Neurology | DX: G62.9 Polyneuropathy, unspecified (principal); R42 Dizziness and giddiness; R26.89 Other abnormalities of gait and mobility; G70.00 Myasthenia gravis without (acute) exacerbation; R41.3 Other amnesia | CPT/HCPCS: 99214 ==

== ENCOUNTER → 2023-10-16 12:52 | Outpatient (BNVA) | payer MEDICARE, SELFPAY | PROVIDERS: PCP Family Medicine; Referring Provider Family Medicine; Visit Provider Psychiatry & Neurology Neurology | DX: R42 Dizziness and giddiness (principal); R06.09 Other forms of dyspnea; R26.89 Other abnormalities of gait and mobility; G70.00 Myasthenia gravis without (acute) exacerbation; R41.3 Other amnesia; G62.9 Polyneuropathy, unspecified | CPT/HCPCS: 99215 ==

== ENCOUNTER → 2023-10-30 10:47 | Outpatient (BNVA) | payer MEDICARE, SELFPAY | PROVIDERS: PCP Family Medicine; Referring Provider Family Medicine; Visit Provider Podiatrist | DX: L60.3 Nail dystrophy; M79.674 Pain in right toe(s); M79.675 Pain in left toe(s); I73.89 Other specified peripheral vascular diseases; G70.00 Myasthenia gravis without (acute) exacerbation; G62.9 Polyneuropathy, unspecified; I25.10 Atherosclerotic heart disease of native coronary artery without angina pectoris; B35.1 Tinea unguium | CPT/HCPCS: 11721 ==

== ENCOUNTER → 2023-12-13 13:51 | Outpatient (BNVA) | payer MEDICARE, SELFPAY | PROVIDERS: PCP Family Medicine; Referring Provider Family Medicine; Visit Provider Physician Assistant Surgical | DX: J44.9 Chronic obstructive pulmonary disease, unspecified (principal); G70.9 Myoneural disorder, unspecified; J99 Respiratory disorders in diseases classified elsewhere; G70.00 Myasthenia gravis without (acute) exacerbation; R91.1 Solitary pulmonary nodule; Z87.891 Personal history of nicotine dependence | CPT/HCPCS: 99214 ==

== ENCOUNTER → 2024-02-12 12:20 | Outpatient (BNVA) | payer MEDICARE, SELFPAY | PROVIDERS: PCP Family Medicine; Referring Provider Family Medicine; Visit Provider Psychiatry & Neurology Neurology | DX: R42 Dizziness and giddiness (principal); R26.89 Other abnormalities of gait and mobility; G70.00 Myasthenia gravis without (acute) exacerbation; R41.3 Other amnesia | CPT/HCPCS: 99215 ==

== ENCOUNTER → 2024-03-04 10:40 | Outpatient (BNVA) | payer MEDICARE, SELFPAY | PROVIDERS: PCP Family Medicine; Referring Provider Family Medicine; Visit Provider Podiatrist | DX: L60.3 Nail dystrophy (principal); M79.674 Pain in right toe(s); M79.675 Pain in left toe(s); I73.89 Other specified peripheral vascular diseases; G70.00 Myasthenia gravis without (acute) exacerbation; G62.9 Polyneuropathy, unspecified; I25.10 Atherosclerotic heart disease of native coronary artery without angina pectoris; B35.1 Tinea unguium; L85.8 Other specified epidermal thickening | CPT/HCPCS: 11055; 11721 ==

== ENCOUNTER → 2024-03-11 12:42 | Outpatient (BNVA) | payer MEDICARE, SELFPAY | PROVIDERS: PCP Family Medicine; Referring Provider Family Medicine; Visit Provider Nurse Practitioner Gerontology | DX: N40.0 Benign prostatic hyperplasia without lower urinary tract symptoms (principal); R39.9 Unspecified symptoms and signs involving the genitourinary system | CPT/HCPCS: 51798; 81003; 99204; 99215 ==

== ENCOUNTER → 2024-07-04 09:49 | Outpatient (BNVA) | payer MEDICARE, SELFPAY | PROVIDERS: PCP Family Medicine; Referring Provider Family Medicine; Visit Provider Psychiatry & Neurology Neurology | DX: R42 Dizziness and giddiness (principal); G62.9 Polyneuropathy, unspecified; R26.89 Other abnormalities of gait and mobility; G70.00 Myasthenia gravis without (acute) exacerbation; R41.3 Other amnesia; R06.09 Other forms of dyspnea; R73.9 Hyperglycemia, unspecified; J44.9 Chronic obstructive pulmonary disease, unspecified | CPT/HCPCS: 99215 ==

== ENCOUNTER → 2024-07-08 10:55 | Outpatient (BNVA) | payer MEDICARE, SELFPAY | PROVIDERS: PCP Family Medicine; Referring Provider Family Medicine; Visit Provider Podiatrist | DX: M79.674 Pain in right toe(s) (principal); M79.675 Pain in left toe(s); L60.3 Nail dystrophy; M20.41 Other hammer toe(s) (acquired), right foot; L85.8 Other specified epidermal thickening; I73.89 Other specified peripheral vascular diseases; G70.00 Myasthenia gravis without (acute) exacerbation; I25.10 Atherosclerotic heart disease of native coronary artery without angina pectoris; B35.1 Tinea unguium; R60.0 Localized edema; L89.519 Pressure ulcer of right ankle, unspecified stage | CPT/HCPCS: 11721; 28010 ==

== ENCOUNTER → 2024-07-18 12:43 | Outpatient (BNVA) | payer MEDICARE, SELFPAY | PROVIDERS: PCP Family Medicine; Referring Provider Family Medicine; Visit Provider Podiatrist | DX: M20.41 Other hammer toe(s) (acquired), right foot (principal); L60.3 Nail dystrophy; M79.674 Pain in right toe(s); M79.675 Pain in left toe(s); I73.89 Other specified peripheral vascular diseases; G70.00 Myasthenia gravis without (acute) exacerbation; G62.9 Polyneuropathy, unspecified; I25.10 Atherosclerotic heart disease of native coronary artery without angina pectoris; B35.1 Tinea unguium; L89.519 Pressure ulcer of right ankle, unspecified stage | CPT/HCPCS: 99024 ==

== ENCOUNTER → 2024-08-01 10:29 | Outpatient (BNVA) | payer MEDICARE, SELFPAY | PROVIDERS: PCP Family Medicine; Referring Provider Family Medicine; Visit Provider Physician Assistant Surgical | DX: J44.9 Chronic obstructive pulmonary disease, unspecified (principal); J99 Respiratory disorders in diseases classified elsewhere; R91.1 Solitary pulmonary nodule; G70.9 Myoneural disorder, unspecified; G70.00 Myasthenia gravis without (acute) exacerbation; Z87.891 Personal history of nicotine dependence | CPT/HCPCS: 99214 ==

== ENCOUNTER → 2024-10-23 14:23 | Outpatient (BNVA) | payer MEDICARE, SELFPAY | PROVIDERS: PCP Family Medicine; Referring Provider Family Medicine; Visit Provider Nurse Practitioner Gerontology | DX: N40.0 Benign prostatic hyperplasia without lower urinary tract symptoms (principal); R39.9 Unspecified symptoms and signs involving the genitourinary system | CPT/HCPCS: 99213; 51798 ==

== ENCOUNTER → 2024-10-31 10:48 | Outpatient (BNVA) | payer MEDICARE, SELFPAY | PROVIDERS: PCP Family Medicine; Referring Provider Family Medicine; Visit Provider Physician Assistant Surgical | DX: J44.9 Chronic obstructive pulmonary disease, unspecified (principal); Z87.891 Personal history of nicotine dependence; G70.9 Myoneural disorder, unspecified; J99 Respiratory disorders in diseases classified elsewhere; G70.00 Myasthenia gravis without (acute) exacerbation; R91.1 Solitary pulmonary nodule | CPT/HCPCS: 99214 ==

== ENCOUNTER → 2024-11-04 14:51 | Outpatient (BNVA) | payer MEDICARE, SELFPAY | PROVIDERS: PCP Family Medicine; Referring Provider Family Medicine; Visit Provider Psychiatry & Neurology Neurology | DX: R42 Dizziness and giddiness (principal); G62.9 Polyneuropathy, unspecified; R26.89 Other abnormalities of gait and mobility; G70.00 Myasthenia gravis without (acute) exacerbation; R41.3 Other amnesia; R06.09 Other forms of dyspnea | CPT/HCPCS: 99215 ==

== ENCOUNTER → 2024-11-25 12:40 | Outpatient (BNVA) | payer MEDICARE, SELFPAY | PROVIDERS: PCP Family Medicine; Referring Provider Family Medicine; Visit Provider Psychiatry & Neurology Neurology | DX: G70.00 Myasthenia gravis without (acute) exacerbation (principal); R42 Dizziness and giddiness; G62.9 Polyneuropathy, unspecified; R26.89 Other abnormalities of gait and mobility; R41.3 Other amnesia; R06.09 Other forms of dyspnea; J44.9 Chronic obstructive pulmonary disease, unspecified | CPT/HCPCS: 99215 ==

== ENCOUNTER → 2025-02-04 10:49 | Outpatient (BNVA) | payer MEDICARE, SELFPAY | PROVIDERS: PCP Family Medicine; Referring Provider Family Medicine; Visit Provider Psychiatry & Neurology Neurology | DX: G70.00 Myasthenia gravis without (acute) exacerbation (principal); R42 Dizziness and giddiness; G62.9 Polyneuropathy, unspecified; R26.89 Other abnormalities of gait and mobility; R41.3 Other amnesia; R06.09 Other forms of dyspnea; J44.9 Chronic obstructive pulmonary disease, unspecified | CPT/HCPCS: 99214 ==

== ENCOUNTER → 2025-03-31 13:44 | Outpatient (BNVA) | payer MEDICARE, SELFPAY | PROVIDERS: PCP Family Medicine; Referring Provider Family Medicine; Visit Provider Psychiatry & Neurology Neurology | DX: G70.00 Myasthenia gravis without (acute) exacerbation (principal); R42 Dizziness and giddiness; R26.89 Other abnormalities of gait and mobility; G62.9 Polyneuropathy, unspecified; R41.3 Other amnesia; R06.09 Other forms of dyspnea; J44.89 Other specified chronic obstructive pulmonary disease | CPT/HCPCS: 99215 ==

== ENCOUNTER → 2025-05-14 12:34 | Outpatient (BNVA) | payer MEDICARE, SELFPAY | PROVIDERS: PCP Family Medicine; Referring Provider Family Medicine; Visit Provider Physician Assistant Surgical | DX: J44.9 Chronic obstructive pulmonary disease, unspecified (principal); G70.9 Myoneural disorder, unspecified; J99 Respiratory disorders in diseases classified elsewhere; G70.00 Myasthenia gravis without (acute) exacerbation; R91.1 Solitary pulmonary nodule; Z87.891 Personal history of nicotine dependence | CPT/HCPCS: 99214 ==